=== PATIENT | male | born 1950 | race Caucasian/White ===

== ENCOUNTER 2022-01-14 07:19 | Inpatient (IN) | payer MEDICARE ==
[2022-01-14 09:03] LABS: Troponin I 8.354 ng/mL (< 0.028)
[2022-01-14] MEDS ORDERED: Acetaminophen 325 MG TAB PO PRN (10:05)
[2022-01-14] MEDS ORDERED: Ondansetron ODT 4 MG TAB PO PRN (10:05)
[2022-01-14 10:52] VITALS: BMI 30.1
[2022-01-14] MEDS ORDERED: Lidocaine 1% 20 ML MDV ONE (11:07)
[2022-01-14] MEDS ORDERED: Nitroglycerin 50 MG/250 ML BOT 250 ML ONE (11:07)
[2022-01-14] MEDS ORDERED: Heparin 10,000 UNITS/ 10 ML VIAL ONE (11:08)
[2022-01-14] MEDS ORDERED: Fentanyl 100 MCG/2 ML VIAL ONE (11:08)
[2022-01-14] MEDS ORDERED: Adenosine 6 MG/2 ML VIAL ONE (11:08)
[2022-01-14] MEDS ORDERED: Sodium Chloride 0.9% 1,000 ML ONE (11:09)
[2022-01-14] MEDS ORDERED: Midazolam HCl 2 mg/2 ml Vial ONE (11:09)
[2022-01-14 12:14] LABS: Troponin I 13.377 ng/mL (< 0.028)
[2022-01-14] MEDS ORDERED: Acetaminophen/Codeine 30-300mg Tablet PO PRN ×2 (12:28)
[2022-01-14] MEDS ORDERED: Nitroglycerin 0.4 MG TAB (25 Tab Bottle) SL PRN (12:28)
[2022-01-14] MEDS ORDERED: Iopamidol 300 61% 100 ML VIAL FS ONE (12:36)
[2022-01-14] MEDS ORDERED: Potassium Chloride 20 MEQ TAB PO SCH (13:09)
[2022-01-14 14:37] LABS: SARS-CoV-2 NAA Rapid Test Not Detected (NotDetected)
[2022-01-14] MEDS ORDERED: Atorvastatin Calcium 40 MG TAB PO SCH (21:00)
[2022-01-14 21:44] VITALS: BP 111/67; TEMP 98.4
[2022-01-14] MEDS ORDERED: Heparin 25,000 units/D5W 500 ML IVPB SCH (22:00)
[2022-01-14] MEDS ORDERED: Heparin 10,000 UNITS/ 10 ML VIAL SLOW IVP SCH (22:00)
[2022-01-15] MEDS ORDERED: Aspirin 81 mg Enteric Coated Tablet PO SCH (09:00)
== END 2022-01-14 21:20 | disposition short-term general hospital (02) | DRG 282 ==
LOC: CSHTELE 07:19
PROVIDERS: ADMIT Student in an Organized Health Care Education/Training Program; ATTEND Student in an Organized Health Care Education/Training Program
PROC: 4A023N7 Measurement of Cardiac Sampling and Pressure, Left Heart, Percutaneous Approach (ICD-10-PCS; principal; 2022-01-14)
PROC: B2111ZZ Fluoroscopy of Multiple Coronary Arteries using Low Osmolar Contrast (ICD-10-PCS; 2022-01-14)
PROC: B2151ZZ Fluoroscopy of Left Heart using Low Osmolar Contrast (ICD-10-PCS; 2022-01-14)
PROC: B3121ZZ Fluoroscopy of Left Subclavian Artery using Low Osmolar Contrast (ICD-10-PCS; 2022-01-14)
DX: I21.4 Non-ST elevation (NSTEMI) myocardial infarction (principal); Z20.822 Contact with and (suspected) exposure to COVID-19; I10 Essential (primary) hypertension; E66.9 Obesity, unspecified; I25.10 Atherosclerotic heart disease of native coronary artery without angina pectoris; E78.5 Hyperlipidemia, unspecified; Z79.899 Other long term (current) drug therapy; Z82.49 Family history of ischemic heart disease and other diseases of the circulatory system; Z68.30 Body mass index [BMI] 30.0-30.9, adult
CPT/HCPCS: 36415; 83036; 84443; 93005; 93010; 93459; 94760; 99152; 99153; C1760; C1769; J0153; J1644; J2250; J3010; J7050; Q9967; U0002